=== PATIENT | female | born 1965 | race Caucasian/White ===

== ENCOUNTER → 2017-05-10 | Outpatient (CLI) | payer BC ==
[~2017-05-10] MED LIST: ACID1CAP PO; ASHW500C PO; BIOT50004 PO; FLON1SPR; [UNRECOGNIZED DRUG - CODE] PO; [UNRECOGNIZED DRUG - OTHER] PO
[2017-05-10 13:55] LABS: MEAN CORPUSCULAR HEMOGLOBIN 31.9 pg (27.0-33.0); MEAN CORPUSCULAR HGB CONC 32.3 g/dl (32.0-36.5); MEAN CORPUSCULAR VOLUME 98.8 fl (80.0-96.0); RED CELL DISTRIBUTION WIDTH 12.6 % (11.5-14.5); WHITE BLOOD COUNT 6.8 10^3/uL (4.0-10.0)
== END ==
LOC: M WUC 12:20
PROVIDERS: ATTEND Plastic Surgery
DX: Z01.818 Encounter for other preprocedural examination (principal); D64.9 Anemia, unspecified

== ENCOUNTER → 2017-07-23 | Outpatient (CLI) | payer BC ==
--- NOTE | 2017-07-23 11:47 | REP ---
PELVIC SONOGRAPHY: Transabdominal transvaginal scanning. HISTORY: Enlarged uterus on CT. Unspecified ovarian cyst. Pelvic pain. Comparison pelvic sonography August 27, 2013. Comparison CT study is from 07/18/2017. PELVIC SONOGRAPHIC FINDINGS: A retroverted retroflexed uterus is again seen with dimensions of 8.8 x 6.0 x 3.6 cm. Endometrial echo 0.5 cm thick. The uterus is not felt to be enlarged. Multiple fibroids are seen sonographically. The largest of these is in the right lateral aspect of the uterus measuring 2.2 x 1.8 x 1.5 cm. This corresponds to the CT finding. Retroverted the uterus is approximately the same size as on August 24, 2013 prior study. Normal ovaries are seen bilaterally. Transvaginal dimensions of the right ovary 1.7 x 0.8 x 1.3 cm. Left ovary dimensions are 2.3 x 1.2 x 1.5 cm. No ovarian mass or cyst is seen. No free fluid is seen. IMPRESSION: Small fibroids. Mildly prominent size uterus. Retroverted retroflexed. No other abnormality. The largest fibroid is 2.2 cm in diameter. Signed by Norman Sosa MD 07/23/2017 02:24 P
== END ==
LOC: M WHC 08:23
PROVIDERS: ATTEND Nurse Practitioner Family
DX: D25.9 Leiomyoma of uterus, unspecified (principal); R10.2 Pelvic and perineal pain

== ENCOUNTER → 2017-09-10 | Outpatient (CLI) | payer BC | LOC: M WHC 14:53 | DX: Z12.31 Encounter for screening mammogram for malignant neoplasm of breast (principal); Z80.3 Family history of malignant neoplasm of breast; Z41.1 Encounter for cosmetic surgery | CPT/HCPCS: 77067 ==

== ENCOUNTER → 2017-12-06 | Outpatient (REF) | payer BC | LOC: M SFHCWAGY 15:48 | DX: N39.3 Stress incontinence (female) (male) (principal) | CPT/HCPCS: 87086 ==

== ENCOUNTER → 2018-11-20 | Outpatient (REF) | payer BC | LOC: M SFHCPLAZ 15:59 | PROVIDERS: ATTEND Dermatology | DX: D23.5 Other benign neoplasm of skin of trunk (principal) ==

== ENCOUNTER → 2019-03-10 | Outpatient (REF) | payer BC ==
[2019-03-12 14:51] LABS: HPV HYBRID CAPTURE II Negative (Negative)
== END ==
LOC: M SFHCWAGY 11:48
PROVIDERS: ATTEND Nurse Practitioner Family
DX: Z12.4 Encounter for screening for malignant neoplasm of cervix (principal)
CPT/HCPCS: 87624; G0123

== ENCOUNTER → 2019-03-10 | Outpatient (CLI) | payer BC ==
--- NOTE | 2019-03-10 12:47 | REPMRS ---
Patient History The patient states she had a clinical breast exam in 03/2019. Patient is postmenopausal. Family history of breast cancer at age 50 or over in maternal aunt, breast cancer at age 50 or over in maternal grandmother, breast cancer at age 50 or over in maternal aunt, colorectal cancer at age 50 or over in maternal aunt. Reductions of both breasts, 2007. Benign stereotactic core biopsy of the left breast, December 06, 2004. Taking estrogen for 2 years. Took unspecified hormones for 2 months. 3D TOMOSYNTHESIS WAS PERFORMED. [facility] lifetime risk for breast cancer is 14.1%. Digital Woman Screen Mammo: March 10, 2019 - Exam #: [id number] Bilateral CC and MLO view(s) were taken. Technologist: Vandana Jc, Technologist Prior study comparison: September 10, 2017, digital woman screen mammo performed at [facility]. January 31, 2016, digital woman screen mammo performed at [facility]. FINDINGS: The breast tissue is extremely dense which could obscure a lesion on mammography. There is no evidence of cancer on this mammogram. There is a stable nodule in the upper outer right breast. No significant changes when compared with prior studies. Assessment: BI-RADS/ACR category 2 mammogram. Benign Findings. Recommendation Routine screening mammogram of both breasts in 1 year (for women over age 40). This mammogram was interpreted with the aid of an FDA-approved computer-aided dectection system. Electronically Signed By: Karl Orellana MD 03/10/19 [id number]
== END ==
LOC: M WHC 10:37
PROVIDERS: ATTEND Nurse Practitioner Family
DX: Z12.31 Encounter for screening mammogram for malignant neoplasm of breast (principal); Z78.0 Asymptomatic menopausal state; Z80.3 Family history of malignant neoplasm of breast; Z92.23 Personal history of estrogen therapy; Z79.818 Long term (current) use of other agents affecting estrogen receptors and estrogen levels

== ENCOUNTER → 2019-04-02 | Outpatient (CLI) | payer BC ==
--- NOTE | 2019-04-02 23:01 | REP ---
Clinical: Postmenopausal bleeding Technique: Transabdominal pelvic ultrasound followed by transvaginal examination for better evaluation of the endometrium and adnexa. Findings: Bladder is unremarkable and measures 10.2 x 10.3 x 9.1 cm . Heterogeneous retroverted myomatous uterus measures 6.5 x 4.0 x 5.8 cm. Approximately nine discrete scattered uterine fibroids are identified. Largest fundal fibroid in the left fundal subserosal region measures 1.3 cm maximal diameter; largest submucosal fibroid noted posteriorly and measures 8 mm maximal diameter, and largest subserosal fibroid along the right posterior uterus measures 2.5 cm maximal diameter. Other fibroid scattered throughout the uterus measuring between 0.8 and 1.9 cm maximal diameter. The endometrial complex measures 3.4 mm thickness. Subcentimeter Nabothian cysts identified. Bilateral ovaries are normal in appearance. Right ovary measures 2.4 x 1.0 x 2.3 cm ; Left ovary measures 2.3 x 1.2 x 1.6 cm. No pelvic fluid or adnexal mass lesion . Impression: 1. Heterogeneous myomatous retroverted uterus
== END ==
LOC: M WHC 08:27
PROVIDERS: ATTEND Nurse Practitioner Family
DX: N95.0 Postmenopausal bleeding (principal)